=== PATIENT | male | born 1955 | race Caucasian/White ===

== ENCOUNTER 2017-04-22 05:04 | Emergency (ER) | payer OTHER ==
[~2017-04-22] VITALS: Ht 180.3 cm; Wt 73.6 kg
[~2017-04-22 05:04] MED LIST: ADVANCED PROBI625 MG PO; ALDACTONE100 MG PO; AMBIEN5 MG PO; AMILORIDE HCL5 MG PO; ASCORBIC ACID500 M3 PO; BENADRYL25 MG PO; CORGARD20 MG PO; CYANOCOBALAM1000 MCG PO; DAILY VITAMIN1 EAC8 PO; ELAVIL10 MG PO; FLEXERIL10 MG PO; FLUCONAZOLE100 MG PO; FUROSEMIDE20 MG PO; FUROSEMIDE40 MG PO; GENERLAC10 GM/15 M PO; HI B COMPLEX1 EAC1 PO; HYDROMORPHONE HC4 MG PO; K-DUR20 MEQ PO; LACTULOSE10 GM/151 PO; LORAZEPAM0.5 MG PO; MIDAMOR5 MG PO; NADOLOL20 MG PO; PROTONIX40 MG PO; RIBAVIRIN200 MG PO; SOVALDI400 MG PO; SUCRALFATE1 GM/10 ML PO; VITAMIN D1000 UNIT PO; VITAMIN D31000 UNIT PO; XIFAXAN550 MG PO
[2017-04-22 05:58] LABS: HEMATOCRIT 43.5 % (38.0-50.0); MCH 33.1 PG (29.0-34.0); MCHC 34.5 G/DL (30.0-36.0); MEAN PLAT.VOLUME 9.7 uM^3 (9.0-12.4); PLATELET COUNT 227 K/uL (156-360); RBC DIS.WIDTH-CV 15.9 % (11.8-14.6); RBC DIS.WIDTH-SD 56.2 % (39-53); RED BLOOD COUNT 4.53 M/uL (4.00-5.50); WHITE BLOOD COUNT 8.2 K/uL (4.1-10.2)
[2017-04-22 06:20] LABS: CHLORIDE 97 mEq/L (99-109); POTASSIUM 3.4 mEq/L (3.7-5.4); SODIUM 132 mEq/L (136-147)
[2017-04-22 06:22] LABS: GLUCOSE 99 mg/dL (70-99)
[2017-04-22 06:24] LABS: ANION GAP 11 MEQ/L (2-14); TOTAL BILIRUBIN 2.3 mg/dL (0.0-1.0)
[2017-04-22 06:26] LABS: ALKALINE PHOSPHATASE 156 IU/L (3-129); GFR ESTIMATE (CALCULATED) > 59 mL/min/
[2017-04-22 06:27] LABS: UREA NITROGEN (BUN) 2 mg/dL (9-23)
[2017-04-22 06:45] LABS: INTER. NORMALIZED RATIO 1.7; PROTHROMBIN TIME 17.8 (9.2-11.2); PTT 30.9 (25-32)
[2017-04-22 06:55] LABS: LIPASE 41 U/L (1.0-51.0)
[2017-04-22 09:42] LABS: ADD MIUA? NO; BILIRUBIN NEGATIVE; BLOOD NEGATIVE; COLOR YELLOW ((YELLOW)); GLUCOSE (STRIP) NEGATIVE; KETONES NEGATIVE; LEUKOCYTES NEGATIVE; NITRITE NEGATIVE; PROTEIN (STRIP) NEGATIVE; SPECIFIC GRAVITY 1.027 (1.000-1.030); UCUL ADDED? NO
[2017-04-22] MEDS ORDERED: ZOFRAN4 MG PO (09:49)
[2017-04-22 10:25] VITALS: BP 97/52
== END 2017-04-22 10:41 | disposition home or self-care (01) ==
LOC: EME 05:04
PROVIDERS: Emergency Medicine
DX: G89.18 Other acute postprocedural pain (principal); R10.9 Unspecified abdominal pain; R18.8 Other ascites; I10 Essential (primary) hypertension; F17.200 Nicotine dependence, unspecified, uncomplicated
CPT/HCPCS: 74177; 80053; 81003; 83605; 83690; 85027; 85610; 85730; 99281; 99285; J2405; J3010; J7040

== ENCOUNTER 2017-10-14 05:20 | Emergency (ER) | payer OTHER ==
[~2017-10-14] VITALS: Ht 182.9 cm; Wt 67.5 kg
[~2017-10-14 05:20] MED LIST changes: +ZOFRAN4 MG PO
[2017-10-14 05:54] LABS: HEMATOCRIT 41.3 % (38.0-50.0); MCH 31.4 PG (29.0-34.0); MCHC 34.6 G/DL (30.0-36.0); MCV 90.8 FL (86-99); MEAN PLAT.VOLUME 9.7 uM^3 (9.0-12.4); PLATELET COUNT 263 K/uL (156-360); RBC DIS.WIDTH-CV 15.4 % (11.8-14.6); RBC DIS.WIDTH-SD 50.6 % (39-53); RED BLOOD COUNT 4.55 M/uL (4.00-5.50); WHITE BLOOD COUNT 8.8 K/uL (4.1-10.2)
[2017-10-14 06:04] LABS: CHLORIDE 89 mEq/L (99-109); POTASSIUM 3.3 mEq/L (3.7-5.4); SODIUM 131 mEq/L (136-147)
[2017-10-14 06:06] LABS: GLUCOSE 108 mg/dL (70-99)
[2017-10-14 06:07] LABS: ANION GAP 14 MEQ/L (2-14)
[2017-10-14 06:08] LABS: TOTAL BILIRUBIN 1.8 mg/dL (0.0-1.0)
[2017-10-14 06:09] LABS: ALKALINE PHOSPHATASE 81 IU/L (3-129)
[2017-10-14 06:10] LABS: GFR ESTIMATE (CALCULATED) 55 mL/min/
[2017-10-14 06:11] LABS: UREA NITROGEN (BUN) 12 mg/dL (9-23)
[2017-10-14 06:13] LABS: LIPASE 261 U/L (1.0-51.0)
[2017-10-14 06:15] LABS: TROP-I INTERPRETATION NEGATIVE; TROPONIN-I < 0.01 ng/mL (0.0-0.30)
[2017-10-14 09:27] LABS: INTER. NORMALIZED RATIO 1.5; PROTHROMBIN TIME 16.7 SEC (10.2-12.9)
[2017-10-14] MEDS ORDERED: LASIX20 MG PO (09:28)
[2017-10-14] MEDS ORDERED: VITAMIN D35000 UNIT PO (09:29)
[2017-10-14] MEDS ORDERED: SPIRONOLACTONE100 MG PO (09:30)
[2017-10-14] MEDS ORDERED: OXYCODONE HCL5 MG PO (09:30)
[2017-10-14 18:30] VITALS: BP 90/54
== END 2017-10-14 20:08 | disposition short-term general hospital (02) ==
LOC: EME 05:20 → OPR 05:20 → EDOF 08:39 → EME 08:39 → EDOF 08:39 → CANRESERV 09:02 → ENRESERV 09:02
PROVIDERS: Family Medicine; Physician Assistant
DX: R10.13 Epigastric pain (principal); R11.2 Nausea with vomiting, unspecified; K43.6 Other and unspecified ventral hernia with obstruction, without gangrene; K70.30 Alcoholic cirrhosis of liver without ascites; K42.9 Umbilical hernia without obstruction or gangrene; E86.0 Dehydration; E87.1 Hypo-osmolality and hyponatremia; E87.5 Hyperkalemia; N17.9 Acute kidney failure, unspecified; B19.20 Unspecified viral hepatitis C without hepatic coma; N43.3 Hydrocele, unspecified; Z86.010 Personal history of colon polyps; Z83.71 Family history of colonic polyps; K80.50 Calculus of bile duct without cholangitis or cholecystitis without obstruction; I10 Essential (primary) hypertension; K76.6 Portal hypertension; F17.200 Nicotine dependence, unspecified, uncomplicated
CPT/HCPCS: 74177; 80053; 83690; 84484; 85014; 85018; 85027; 85610; 86850; 86900; 86901; 93005; 99281; 99285; C9113; J3480; J7030